=== PATIENT | male | born 1940 | race African-American/Black ===

== ENCOUNTER 2021-11-24 08:17 | Inpatient (IN) | payer OTHER ==
[2021-11-24] MEDS ORDERED: SODIUM CHLORIDE 0.9% 500 ML INFUS.BAG IV ONE ×2 (08:50→09:51)
[2021-11-24] MEDS ORDERED: ACETAMINOPHEN INJECTION 100 ML IVPB ONE (09:09)
[2021-11-24] MEDS ORDERED: ACETAMINOPHEN 1000 MG/100 ML BAG IVPB ONE ×2 (09:09→22:12)
[2021-11-24] MEDS ORDERED: SODIUM CHLORIDE 0.9% 1000 ML INFUS.BAG IV ONE (09:10)
[2021-11-24 09:23] LABS: VENOUS BASE EXCESS -7.6 mmol/L (-2-2); VENOUS O2 SATURATION 66.1 % (70-80); VENOUS PCO2 40.6 mmHg (38-52); VENOUS PH 7.28 (7.310-7.410)
[2021-11-24 09:35] LABS: BASO % 0.1 % (0-2.0); HEMATOCRIT 42.1 % (35.4-49); HEMOGLOBIN 13.8 GM/dL (11.7-16.9); LYMPH % 3.6 % (8-40); MCH 26.6 pg (25.7-33.7); MCHC 32.8 g/dl (32.0-35.9); MEAN CELL VOLUME 81.1 fl (80-96); MEAN PLT VOLUME 7.7 fl (7.5-11.1); MONO % 5.8 % (3.8-10.2); NEUT % 90.5 % (42.8-82.8); PLATELET COUNT 157 10^3/uL (134-434); WHITE BLOOD COUNT 10.8 K/mm3 (4.0-10.0)
[2021-11-24 09:40] LABS: ALBUMIN 2.9 g/dl (3.4-5.0); BLOOD UREA NITROGEN 30.6 mg/dL (7-18); CALCIUM 8.2 mg/dL (8.5-10.1)
[2021-11-24 09:44] LABS: CREATININE 2.5 mg/dL (0.55-1.3)
[2021-11-24 09:45] LABS: BILIRUBIN,TOTAL 0.6 mg/dL (0.2-1); TOT PROT 6.1 g/dl (6.4-8.2)
[2021-11-24 09:46] LABS: LACTIC ACID 4.3 mmol/L (0.4-2.0)
[2021-11-24] MEDS ORDERED: PIPERACILLIN/TAZOB 3.375 GM 3.375 GM in DEXTROSE 5%-WATER - 50 ML IVPB ONE (09:49)
[2021-11-24 09:50] LABS: INR 1.32 (0.83-1.09); PROTHROMBIN TIME (PATIENT) 15.2 SEC (9.7-13.0)
[2021-11-24] MEDS ORDERED: PIPERACILLIN/TAZOB 3.375 GM 3.375 GM/50 ML BAG IVPB ONE (10:05)
[2021-11-24 10:29] LABS: ANISOCYTOSIS 0; MACROCYTOSIS 0
[2021-11-24 11:33] LABS: EPI CELLS 13 /uL (0-25.1); HYALINE CASTS 91 /uL (0-3.1); PH,URINE 5.5 (5.0-8.0); URINE APPEARANCE CLOUDY; URINE BACTERIA >9,000 /uL (0-1359); URINE BILIRUBIN NEGATIVE (NEGATIVE); URINE COLOR DK YELLOW; URINE GLUCOSE (UA) NEGATIVE (NEGATIVE); URINE KETONE TRACE (NEGATIVE); URINE LEUK ESTERASE 2+ (NEGATIVE); URINE NITRITE POSITIVE (NEGATIVE); URINE PROTEIN 2+ (NEGATIVE); URINE RBC 357 /uL (0-23.9); URINE WBC 976 /uL (0-25.8)
[2021-11-24 12:04] LABS: CALCIUM 7.3 mg/dL (8.5-10.1)
[2021-11-24 12:05] LABS: ALBUMIN 2.4 g/dl (3.4-5.0); BLOOD UREA NITROGEN 29.9 mg/dL (7-18)
[2021-11-24 12:08] LABS: CREATININE 2.5 mg/dL (0.55-1.3)
[2021-11-24 12:10] LABS: BILIRUBIN,TOTAL 0.6 mg/dL (0.2-1); TOT PROT 5.4 g/dl (6.4-8.2)
[2021-11-24] MEDS ORDERED: LACTATED RINGERS SOLUTION 1000 ML INFUS.BAG IV ONE (13:53)
[2021-11-24] MEDS ORDERED: LACTATED RINGERS SOLUTION 1,000 ML/1,000 ML INFUS.BAG IV SCH (14:30)
[2021-11-24] MEDS ORDERED: cefTRIAXone SODIUM 1 GM VIAL ONE (15:25)
[2021-11-24] MEDS ORDERED: DEXTROSE 5%-WATER - 50 ML IVPB ONE (15:25)
[2021-11-24] MEDS ORDERED: PROPOFOL 20 ML ONE ×2 (15:26)
[2021-11-24] MEDS ORDERED: LIDOCAINE HCL/PF 2% SDV 5ML VIAL ONE (15:27)
[2021-11-24] MEDS ORDERED: ETOMIDATE 20 MG/10 ML AMPUL IVPUSH ONE (15:27)
[2021-11-24] MEDS: SODIUM CHLORIDE 1,000 ML IV SCH (15:30)
[2021-11-24] MEDS ORDERED: PHENYLEPHRINE HCL 10 MG/1 ML SINGLE DOSE VIAL ONE (15:30)
[2021-11-24] MEDS: CEFTRIAXONE 1 GM in DEXTROSE 5%-WATER - 50 ML IVPB SCH (15:30)
[2021-11-24] MEDS ORDERED: ePHEDrine SULFATE 50 MG/1 ML AMPULE ONE (15:34)
[2021-11-24] MEDS ORDERED: SODIUM CHLORIDE 0.9% P/F 10 ML VIAL IJ ONE (15:35)
[2021-11-24] MEDS ORDERED: SUCCINYLCHOLINE CHLORIDE 200 MG/10 ML SYRINGE ONE (15:38)
[2021-11-24] MEDS ORDERED: KETAMINE HCL 200 MG/20 ML VIAL ONE (16:00)
[2021-11-24] MEDS ORDERED: SEVOFLURANE 250 ML BTL ONE (16:17)
[2021-11-24] MEDS ORDERED: SODIUM CHLORIDE 500 ML IV STA (17:19)
[2021-11-24] MEDS: FINASTERIDE 5 MG TABLET (FP) PO SCH (18:00)
[2021-11-24] MEDS: PANTOPRAZOLE SODIUM 40 MG VIAL IVPUSH SCH (18:00)
[2021-11-24] MEDS: MUPIROCIN 2% TOPICAL OINTMENT FOR DECOLONIZATION NS SCH (21:55)
[2021-11-24] MEDS: TAMSULOSIN HCL 0.4 MG CAP PO SCH (21:55)
[2021-11-24] MEDS: CHLORHEXIDINE GLUCONATE 4% CLEANSER FOR DECOLONIZATION TP SCH (21:55)
[2021-11-25 07:09] LABS: HEMATOCRIT 41.8 % (35.4-49); HEMOGLOBIN 13.5 GM/dL (11.7-16.9); MCH 26.3 pg (25.7-33.7); MCHC 32.3 g/dl (32.0-35.9); MEAN CELL VOLUME 81.4 fl (80-96); PLATELET COUNT 125 10^3/uL (134-434); RBC 5.13 M/mm3 (4.00-5.60); RDW 15.4 % (11.9-15.9); WHITE BLOOD COUNT 13.3 K/mm3 (4.0-10.0)
[2021-11-25 07:27] LABS: ALBUMIN 2.3 g/dl (3.4-5.0); CALCIUM 7.3 mg/dL (8.5-10.1)
[2021-11-25 07:30] LABS: BLOOD UREA NITROGEN 33.2 mg/dL (7-18); CREATININE 2.5 mg/dL (0.55-1.3)
[2021-11-25 07:31] LABS: BILIRUBIN,TOTAL 0.6 mg/dL (0.2-1)
[2021-11-25 07:32] LABS: TOT PROT 5.5 g/dl (6.4-8.2)
[2021-11-25 08:05] LABS: ACTIVATED PTT 33.8 SECONDS (25.2-36.5); INR 1.3 (0.83-1.09)
[2021-11-25] MEDS ORDERED: DEXTROSE 5%-WATER - 50 ML IVPB ONE (09:26)
[2021-11-25] MEDS ORDERED: cefTRIAXone SODIUM 1 GM VIAL ONE (09:26)
[2021-11-25] MEDS: CEFTRIAXONE 1 GM in DEXTROSE 5%-WATER - 50 ML IVPB SCH (09:28)
[2021-11-25] MEDS: FINASTERIDE 5 MG TABLET (FP) PO SCH (09:29)
[2021-11-25] MEDS: MUPIROCIN 2% TOPICAL OINTMENT FOR DECOLONIZATION NS SCH ×2 (09:29→21:03)
[2021-11-25] MEDS: PANTOPRAZOLE SODIUM 40 MG VIAL IVPUSH SCH (09:29)
[2021-11-25] MEDS: TAMSULOSIN HCL 0.4 MG CAP PO SCH ×2 (09:29→21:03)
[2021-11-25 09:39] LABS: ANISOCYTOSIS 0; HELMET CELLS 0; HOWELL-JOLLY BODIES 0; MACROCYTOSIS 0; OVALOCYTE 0; ROULEAU 0; SICKELED CELLS 0; TARGET CELLS 0; TEAR DROP CELLS 0; TOXIC GRANULATION 0
[2021-11-25 09:40] LABS: PLATELET ESTIMATE SLT DECREASE
[2021-11-25] MEDS ORDERED: morphine SULFATE 4 MG/ML VIAL IVPUSH ONE ×2 (09:52→16:46)
[2021-11-25] MEDS ORDERED: HEPARIN NA (PORCINE) 5,000 UNITS/ML 1ML VIAL SQ SCH (10:00)
[2021-11-25] MEDS ORDERED: PIPERACILLIN/TAZOB 2.25 GM 2.25 GM in DEXTROSE 5%-WATER - 50 ML IVPB SCH ×2 (10:30→15:00)
[2021-11-25] MEDS ORDERED: MAGNESIUM 2GM/50ML STERILE WATER IVPB IVPB ONE ×2 (10:56→15:40)
[2021-11-25] MEDS ORDERED: MEROPENEM 1 GM VIAL (RESTRICTED TO ID) IVPB ONE ×2 (11:13→20:37)
[2021-11-25] MEDS ORDERED: DEXTROSE 5%-WATER 100 ML IVPB ONE ×2 (11:14→20:37)
[2021-11-25] MEDS: MEROPENEM 1 GM in DEXTROSE 5%-WATER 100 ML IVPB SCH ×2 (11:17→21:03)
[2021-11-25] MEDS ORDERED: ACETAMINOPHEN 1000 MG/100 ML BAG IVPB PRN (11:58)
[2021-11-25] MEDS ORDERED: morphine SULFATE 4 MG/ML VIAL IVPUSH PRN (11:58)
[2021-11-25 15:07] LABS: SARS-CoV-2 NAA Not Detected (Not Detected)
[2021-11-25] MEDS ORDERED: SODIUM CHLORIDE 500 ML IV STA (15:34)
[2021-11-25 15:44] LABS: LACTIC ACID 2.3 mmol/L (0.4-2.0)
[2021-11-25] MEDS: SODIUM CHLORIDE 1,000 ML IV SCH (16:15)
[2021-11-25] MEDS ORDERED: METOPROLOL TARTRATE 5 MG/5 ML VIAL IVPUSH ONE (16:34)
[2021-11-25] MEDS ORDERED: SODIUM CHLORIDE 1,000 ML IV STA (17:35)
[2021-11-25] MEDS ORDERED: METOCLOPRAMIDE HCL 10 MG TABLET (FP) PO ONE (18:17)
[2021-11-25 18:18] LABS: CHLORIDE 113 mmol/L (98-107); SODIUM 140 mmol/L (136-145)
[2021-11-25 18:19] LABS: CALCIUM 7.1 mg/dL (8.5-10.1)
[2021-11-25 18:20] LABS: ANION GAP 9 MMOL/L (8-16); BLOOD UREA NITROGEN 33.6 mg/dL (7-18); CO2 18 mmol/L (21-32); GLUCOSE,RANDOM 80 mg/dL (74-106); MAGNESIUM 5.2 mg/dL (1.8-2.4)
[2021-11-25 18:23] LABS: CREATININE 2.4 mg/dL (0.55-1.3); PHOSPHOROUS 3.5 mg/dL (2.5-4.9)
[2021-11-25] MEDS: METOPROLOL TARTRATE 25 MG TABLET (FP) PO SCH ×2 (18:58→21:03)
[2021-11-25] MEDS ORDERED: HEPARIN NA (PORCINE) 5,000 UNITS/ML 1ML VIAL IVPUSH PRN (19:17)
[2021-11-25] MEDS: HEPARIN NA (PORCINE) 5,000 UNITS/ML 1ML VIAL IVPUSH PRN (20:52)
[2021-11-25] MEDS: HEPARIN - 25,000 UNIT in SODIUM CHLORIDE 495 ML IV SCH (20:52)
[2021-11-25] MEDS: CHLORHEXIDINE GLUCONATE 4% CLEANSER FOR DECOLONIZATION TP SCH (21:04)
[2021-11-25] MEDS ORDERED: METOPROLOL TARTRATE 25 MG TABLET (FP) PO SCH (22:00)
[2021-11-25 22:35] LABS: CHLORIDE 113 mmol/L (98-107); SODIUM 140 mmol/L (136-145)
[2021-11-25 22:37] LABS: ANION GAP 9 MMOL/L (8-16); BLOOD UREA NITROGEN 34.6 mg/dL (7-18); CO2 18 mmol/L (21-32); GLUCOSE,RANDOM 121 mg/dL (74-106)
[2021-11-25 22:38] LABS: ALBUMIN 1.9 g/dl (3.4-5.0)
[2021-11-25 22:40] LABS: SGPT/ALT 29 U/L (13-61)
[2021-11-25 22:41] LABS: CREATININE 2.6 mg/dL (0.55-1.3); SGOT/AST 35 U/L (15-37)
[2021-11-25 22:42] LABS: BILIRUBIN,TOTAL 0.6 mg/dL (0.2-1); TOT PROT 4.9 g/dl (6.4-8.2)
[2021-11-25 22:43] LABS: ALK PHOS 109 U/L (45-117)
[2021-11-25 22:49] LABS: CALCIUM 6.9 mg/dL (8.5-10.1)
[2021-11-26 07:23] LABS: HEMATOCRIT 36.8 % (35.4-49); HEMOGLOBIN 12.3 GM/dL (11.7-16.9); MCHC 33.5 g/dl (32.0-35.9); MEAN CELL VOLUME 80.6 fl (80-96); MEAN PLT VOLUME 7.9 fl (7.5-11.1); PLATELET COUNT 108 10^3/uL (134-434); RBC 4.56 M/mm3 (4.00-5.60); RDW 15.6 % (11.9-15.9); WHITE BLOOD COUNT 15.7 K/mm3 (4.0-10.0)
[2021-11-26] MEDS ORDERED: DOCUSATE NA 100 MG/10 ML UNIT-DOSE CUPS PO PRN (07:37)
[2021-11-26] MEDS ORDERED: ACETAMINOPHEN 1000 MG/100 ML BAG IVPB PRN (07:38)
[2021-11-26 07:44] LABS: BLOOD UREA NITROGEN 37.1 mg/dL (7-18); CALCIUM 7.6 mg/dL (8.5-10.1); MAGNESIUM 2.1 mg/dL (1.8-2.4)
[2021-11-26 07:46] LABS: CREATININE 2.4 mg/dL (0.55-1.3)
[2021-11-26 07:47] LABS: BILIRUBIN,TOTAL 0.4 mg/dL (0.2-1); TOT PROT 4.9 g/dl (6.4-8.2)
[2021-11-26] MEDS ORDERED: MEROPENEM 1 GM VIAL (RESTRICTED TO ID) IVPB ONE ×2 (09:02→21:20)
[2021-11-26] MEDS ORDERED: DEXTROSE 5%-WATER 100 ML IVPB ONE ×2 (09:02→21:20)
[2021-11-26] MEDS: PANTOPRAZOLE SODIUM 40 MG VIAL IVPUSH SCH (09:03)
[2021-11-26] MEDS: MEROPENEM 1 GM in DEXTROSE 5%-WATER 100 ML IVPB SCH ×2 (09:03→21:47)
[2021-11-26] MEDS: TAMSULOSIN HCL 0.4 MG CAP PO SCH ×2 (09:04→21:47)
[2021-11-26] MEDS: METOPROLOL TARTRATE 25 MG TABLET (FP) PO SCH ×2 (09:04→21:47)
[2021-11-26] MEDS: FINASTERIDE 5 MG TABLET (FP) PO SCH (09:04)
[2021-11-26] MEDS: MUPIROCIN 2% TOPICAL OINTMENT FOR DECOLONIZATION NS SCH ×2 (09:05→21:46)
[2021-11-26 10:01] LABS: ANISOCYTOSIS 1+; MACROCYTOSIS 0
[2021-11-26 10:04] LABS: PLATELET ESTIMATE SLT DECREASE
[2021-11-26] MEDS ORDERED: FENTANYL NS IVPB 500 MCG/100 ML BAG IVPB SCH (10:30)
[2021-11-26] MEDS ORDERED: FUROSEMIDE 40 MG/4 ML INJECTABLE VIAL IVPUSH ONE (10:45)
[2021-11-26] MEDS ORDERED: SODIUM CHLORIDE 1,000 ML IV SCH (11:09)
[2021-11-26] MEDS: morphine SULFATE 4 MG/ML VIAL IVPUSH PRN (14:54)
[2021-11-26] MEDS: HEPARIN - 25,000 UNIT in SODIUM CHLORIDE 495 ML IV SCH (18:02)
[2021-11-26] MEDS: CHLORHEXIDINE GLUCONATE 4% CLEANSER FOR DECOLONIZATION TP SCH (21:47)
[2021-11-27] MEDS: ACETAMINOPHEN 325 MG TABLET (FP) PO PRN ×2 (06:22→22:12)
[2021-11-27 07:32] LABS: HEMATOCRIT 36.8 % (35.4-49); HEMOGLOBIN 12.6 GM/dL (11.7-16.9); MCH 26.9 pg (25.7-33.7); MCHC 34.2 g/dl (32.0-35.9); MEAN CELL VOLUME 78.8 fl (80-96); PLATELET COUNT 110 10^3/uL (134-434); RBC 4.67 M/mm3 (4.00-5.60); RDW 15.7 % (11.9-15.9); WHITE BLOOD COUNT 10.6 K/mm3 (4.0-10.0)
[2021-11-27] MEDS ORDERED: DEXTROSE 5%-WATER 100 ML IVPB ONE (07:53)
[2021-11-27] MEDS ORDERED: MEROPENEM 1 GM VIAL (RESTRICTED TO ID) IVPB ONE (07:53)
[2021-11-27] MEDS: HEPARIN NA (PORCINE) 5,000 UNITS/ML 1ML VIAL IVPUSH PRN (07:58)
[2021-11-27] MEDS: TAMSULOSIN HCL 0.4 MG CAP PO SCH ×2 (08:02→22:12)
[2021-11-27 08:04] LABS: ALBUMIN 1.8 g/dl (3.4-5.0)
[2021-11-27 08:05] LABS: BLOOD UREA NITROGEN 36.8 mg/dL (7-18); CALCIUM 7.8 mg/dL (8.5-10.1)
[2021-11-27 08:06] LABS: MAGNESIUM 1.9 mg/dL (1.8-2.4)
[2021-11-27 08:07] LABS: CREATININE 2.2 mg/dL (0.55-1.3)
[2021-11-27 08:09] LABS: BILIRUBIN,TOTAL 0.8 mg/dL (0.2-1); TOT PROT 4.7 g/dl (6.4-8.2)
[2021-11-27 09:52] LABS: ANISOCYTOSIS 0; HELMET CELLS 0; HOWELL-JOLLY BODIES 0; MACROCYTOSIS 0; OVALOCYTE 0; ROULEAU 0; SICKELED CELLS 0; TARGET CELLS 0; TEAR DROP CELLS 0; TOXIC GRANULATION 0
[2021-11-27] MEDS: METOPROLOL TARTRATE 25 MG TABLET (FP) PO SCH ×3 (10:11→22:12)
[2021-11-27] MEDS: MEROPENEM 1 GM in DEXTROSE 5%-WATER 100 ML IVPB SCH (10:11)
[2021-11-27] MEDS: PANTOPRAZOLE SODIUM 40 MG VIAL IVPUSH SCH (10:12)
[2021-11-27] MEDS: FINASTERIDE 5 MG TABLET (FP) PO SCH (10:12)
[2021-11-27] MEDS: MUPIROCIN 2% TOPICAL OINTMENT FOR DECOLONIZATION NS SCH ×2 (10:14→22:13)
[2021-11-27] MEDS: APIXABAN 2.5 MG TABLET PO SCH ×2 (11:38→22:12)
[2021-11-27] MEDS: CEFAZOLIN 2 GM in SODIUM CHLORIDE 100 ML IVPB SCH (17:54)
[2021-11-27] MEDS: morphine SULFATE 4 MG/ML VIAL IVPUSH PRN (19:51)
[2021-11-27] MEDS: CHLORHEXIDINE GLUCONATE 4% CLEANSER FOR DECOLONIZATION TP SCH (22:13)
[2021-11-28] MEDS: CEFAZOLIN 2 GM in SODIUM CHLORIDE 100 ML IVPB SCH ×3 (01:33→17:51)
[2021-11-28] MEDS: METOPROLOL TARTRATE 25 MG TABLET (FP) PO SCH ×3 (06:30→21:06)
[2021-11-28 07:34] LABS: HEMATOCRIT 38.3 % (35.4-49); HEMOGLOBIN 12.6 GM/dL (11.7-16.9); MCH 26.1 pg (25.7-33.7); MCHC 32.8 g/dl (32.0-35.9); MEAN CELL VOLUME 79.7 fl (80-96); MEAN PLT VOLUME 7.8 fl (7.5-11.1); PLATELET COUNT 123 10^3/uL (134-434); RBC 4.81 M/mm3 (4.00-5.60); RDW 15.8 % (11.9-15.9)
[2021-11-28 07:37] LABS: ALBUMIN 1.8 g/dl (3.4-5.0); BLOOD UREA NITROGEN 36.8 mg/dL (7-18)
[2021-11-28 07:40] LABS: CREATININE 1.9 mg/dL (0.55-1.3)
[2021-11-28 07:41] LABS: TOT PROT 4.9 g/dl (6.4-8.2)
[2021-11-28 07:42] LABS: BILIRUBIN,TOTAL 0.7 mg/dL (0.2-1)
[2021-11-28] MEDS: TAMSULOSIN HCL 0.4 MG CAP PO SCH ×2 (09:25→21:05)
[2021-11-28] MEDS: ACETAMINOPHEN 325 MG TABLET (FP) PO PRN ×2 (09:32→17:20)
[2021-11-28] MEDS: FINASTERIDE 5 MG TABLET (FP) PO SCH (09:32)
[2021-11-28] MEDS: APIXABAN 2.5 MG TABLET PO SCH (09:32)
[2021-11-28] MEDS: PANTOPRAZOLE SODIUM 40 MG VIAL IVPUSH SCH (09:33)
[2021-11-28] MEDS: MUPIROCIN 2% TOPICAL OINTMENT FOR DECOLONIZATION NS SCH ×2 (09:34→21:06)
[2021-11-28] MEDS ORDERED: ALBUTEROL SO4 2.5/IPRATROPIUM 0.5 INH SOL 3 ML VIAL.NEB. NEB PRN (09:59)
[2021-11-28 10:55] LABS: ANISOCYTOSIS 2+; MACROCYTOSIS 1+
[2021-11-28 13:16] LABS: CALCIUM 7.9 mg/dL (8.5-10.1)
[2021-11-28 13:17] LABS: BLOOD UREA NITROGEN 34.6 mg/dL (7-18)
[2021-11-28 13:20] LABS: CREATININE 1.7 mg/dL (0.55-1.3)
[2021-11-28] MEDS: HEPARIN SOD,PORK IN 0.45% NACL 25,000 UNITS/500 ML INFUS.BAG IVPB SCH (14:10)
[2021-11-28] MEDS: CHLORHEXIDINE GLUCONATE 4% CLEANSER FOR DECOLONIZATION TP SCH (21:06)
[2021-11-29] MEDS: HEPARIN NA (PORCINE) 5,000 UNITS/ML 1ML VIAL IVPUSH PRN ×3 (01:00→22:06)
[2021-11-29] MEDS: CEFAZOLIN 2 GM in SODIUM CHLORIDE 100 ML IVPB SCH ×2 (01:57→11:05)
[2021-11-29] MEDS: METOPROLOL TARTRATE 25 MG TABLET (FP) PO SCH ×3 (06:09→21:41)
[2021-11-29 07:35] LABS: BLOOD UREA NITROGEN 29.7 mg/dL (7-18)
[2021-11-29 07:38] LABS: CREATININE 1.6 mg/dL (0.55-1.3)
[2021-11-29 08:00] LABS: HEMATOCRIT 40.2 % (35.4-49); HEMOGLOBIN 13.2 GM/dL (11.7-16.9); MCH 26.3 pg (25.7-33.7); MCHC 32.9 g/dl (32.0-35.9); PLATELET COUNT 169 10^3/uL (134-434); RBC 5.03 M/mm3 (4.00-5.60); RDW 15.7 % (11.9-15.9); WHITE BLOOD COUNT 14.3 K/mm3 (4.0-10.0)
[2021-11-29 09:12] LABS: ANISOCYTOSIS 1+; MACROCYTOSIS 0
[2021-11-29] MEDS: TAMSULOSIN HCL 0.4 MG CAP PO SCH ×2 (11:05→21:41)
[2021-11-29] MEDS: FINASTERIDE 5 MG TABLET (FP) PO SCH (11:05)
[2021-11-29] MEDS: MUPIROCIN 2% TOPICAL OINTMENT FOR DECOLONIZATION NS SCH (11:05)
[2021-11-29] MEDS: PANTOPRAZOLE SODIUM 40 MG VIAL IVPUSH SCH (11:05)
[2021-11-29] MEDS: ACETAMINOPHEN 325 MG TABLET (FP) PO PRN (11:25)
[2021-11-29 11:29] LABS: INR 1.28 (0.83-1.09); PROTHROMBIN TIME (PATIENT) 14.8 SEC (9.7-13.0)
[2021-11-29 11:32] LABS: ACTIVATED PTT 34.2 SECONDS (25.2-36.5)
[2021-11-29 14:24] VITALS: BMI 29.7
[2021-11-29] MEDS: HEPARIN SOD,PORK IN 0.45% NACL 25,000 UNITS/500 ML INFUS.BAG IVPB SCH (14:28)
[2021-11-29] MEDS ORDERED: PIPERACILLIN/TAZOBACTAM 3.375 GM VIAL IVPB ONE ×2 (17:47→23:57)
[2021-11-29] MEDS ORDERED: DEXTROSE 5%-WATER - 50 ML IVPB ONE ×2 (17:47→23:57)
[2021-11-29] MEDS: PIPERACILLIN/TAZOB 3.375 GM 3.375 GM in DEXTROSE 5%-WATER - 50 ML IVPB SCH (17:49)
[2021-11-29 21:24] LABS: ACTIVATED PTT 34.7 SECONDS (25.2-36.5); INR 1.18 (0.83-1.09); PROTHROMBIN TIME (PATIENT) 13.6 SEC (9.7-13.0)
[2021-11-29] MEDS: CHLORHEXIDINE GLUCONATE 4% CLEANSER FOR DECOLONIZATION TP SCH (21:41)
[2021-11-30] MEDS: PIPERACILLIN/TAZOB 3.375 GM 3.375 GM in DEXTROSE 5%-WATER - 50 ML IVPB SCH ×3 (02:20→18:17)
[2021-11-30] MEDS ORDERED: DOCUSATE NA 100 MG/10 ML UNIT-DOSE CUPS PO PRN (03:00)
[2021-11-30] MEDS: ACETAMINOPHEN 325 MG TABLET (FP) PO PRN ×3 (03:05→21:06)
[2021-11-30] MEDS: METOPROLOL TARTRATE 25 MG TABLET (FP) PO SCH ×3 (05:31→21:06)
[2021-11-30] MEDS: HEPARIN NA (PORCINE) 5,000 UNITS/ML 1ML VIAL IVPUSH PRN ×3 (05:32→23:26)
[2021-11-30 06:58] LABS: HEMATOCRIT 35.5 % (35.4-49); HEMOGLOBIN 11.9 GM/dL (11.7-16.9); MCH 26.4 pg (25.7-33.7); MCHC 33.6 g/dl (32.0-35.9); MEAN CELL VOLUME 78.5 fl (80-96); MEAN PLT VOLUME 7.5 fl (7.5-11.1); PLATELET COUNT 207 10^3/uL (134-434); RBC 4.52 M/mm3 (4.00-5.60); RDW 15.1 % (11.9-15.9)
[2021-11-30 07:24] LABS: ALBUMIN 1.7 g/dl (3.4-5.0); BLOOD UREA NITROGEN 26.8 mg/dL (7-18); CALCIUM 8.3 mg/dL (8.5-10.1)
[2021-11-30 07:27] LABS: CREATININE 1.4 mg/dL (0.55-1.3)
[2021-11-30 07:29] LABS: BILIRUBIN,TOTAL 0.9 mg/dL (0.2-1); TOT PROT 4.8 g/dl (6.4-8.2)
[2021-11-30] MEDS ORDERED: PIPERACILLIN/TAZOBACTAM 3.375 GM VIAL IVPB ONE ×3 (09:13→23:13)
[2021-11-30] MEDS ORDERED: DEXTROSE 5%-WATER - 50 ML IVPB ONE ×3 (09:14→23:13)
[2021-11-30] MEDS: FINASTERIDE 5 MG TABLET (FP) PO SCH (09:23)
[2021-11-30] MEDS: TAMSULOSIN HCL 0.4 MG CAP PO SCH ×2 (09:23→21:06)
[2021-11-30] MEDS: PANTOPRAZOLE SODIUM 40 MG VIAL IVPUSH SCH (09:23)
[2021-11-30] MEDS: HEPARIN SOD,PORK IN 0.45% NACL 25,000 UNITS/500 ML INFUS.BAG IVPB SCH ×2 (09:24→13:47)
[2021-11-30 10:07] LABS: ANISOCYTOSIS 0; HELMET CELLS 0; HOWELL-JOLLY BODIES 0; MACROCYTOSIS 0; OVALOCYTE 0; ROULEAU 0; SICKELED CELLS 0; TARGET CELLS 0; TEAR DROP CELLS 0; TOXIC GRANULATION 0
[2021-11-30] MEDS: CHLORHEXIDINE GLUCONATE 4% CLEANSER FOR DECOLONIZATION TP SCH (21:06)
[2021-12-01] MEDS: PIPERACILLIN/TAZOB 3.375 GM 3.375 GM in DEXTROSE 5%-WATER - 50 ML IVPB SCH ×3 (01:48→17:30)
[2021-12-01] MEDS: METOPROLOL TARTRATE 25 MG TABLET (FP) PO SCH ×3 (04:59→21:55)
[2021-12-01 07:20] LABS: HEMATOCRIT 35.5 % (35.4-49); HEMOGLOBIN 12.1 GM/dL (11.7-16.9); MCH 26.9 pg (25.7-33.7); MCHC 34.2 g/dl (32.0-35.9); MEAN CELL VOLUME 78.7 fl (80-96); MEAN PLT VOLUME 7.3 fl (7.5-11.1); PLATELET COUNT 301 10^3/uL (134-434); WHITE BLOOD COUNT 11.5 K/mm3 (4.0-10.0)
[2021-12-01 07:35] LABS: CALCIUM 7.8 mg/dL (8.5-10.1)
[2021-12-01 07:36] LABS: ALBUMIN 1.7 g/dl (3.4-5.0); BLOOD UREA NITROGEN 26.6 mg/dL (7-18); MAGNESIUM 1.6 mg/dL (1.8-2.4)
[2021-12-01 07:39] LABS: CREATININE 1.4 mg/dL (0.55-1.3); PHOSPHOROUS 2.5 mg/dL (2.5-4.9)
[2021-12-01 07:41] LABS: BILIRUBIN,TOTAL 1.3 mg/dL (0.2-1)
[2021-12-01] MEDS: TAMSULOSIN HCL 0.4 MG CAP PO SCH ×2 (07:49→21:55)
[2021-12-01] MEDS: HEPARIN NA (PORCINE) 5,000 UNITS/ML 1ML VIAL IVPUSH PRN ×2 (07:49→16:38)
[2021-12-01] MEDS ORDERED: PIPERACILLIN/TAZOBACTAM 3.375 GM VIAL IVPB ONE ×2 (08:22→14:44)
[2021-12-01] MEDS ORDERED: DEXTROSE 5%-WATER - 50 ML IVPB ONE ×2 (08:22→14:44)
[2021-12-01] MEDS: ACETAMINOPHEN 325 MG TABLET (FP) PO PRN ×2 (09:29→21:55)
[2021-12-01] MEDS: PANTOPRAZOLE SODIUM 40 MG VIAL IVPUSH SCH (09:30)
[2021-12-01] MEDS: FINASTERIDE 5 MG TABLET (FP) PO SCH (09:30)
[2021-12-01 10:05] LABS: ANISOCYTOSIS 0; HELMET CELLS 0; HOWELL-JOLLY BODIES 0; MACROCYTOSIS 0; OVALOCYTE 0; ROULEAU 0; SICKELED CELLS 0; TARGET CELLS 0; TEAR DROP CELLS 0; TOXIC GRANULATION 0
[2021-12-01] MEDS: HEPARIN SOD,PORK IN 0.45% NACL 25,000 UNITS/500 ML INFUS.BAG IVPB SCH (15:38)
[2021-12-01] MEDS: CHLORHEXIDINE GLUCONATE 4% CLEANSER FOR DECOLONIZATION TP SCH (21:55)
[2021-12-01] MEDS ORDERED: ARTIFICIAL TEARS (POLYVINYL ALCOHOL) OPTH DROPS OU PRN (23:55)
[2021-12-02] MEDS ORDERED: DEXTROSE 5%-WATER - 50 ML IVPB ONE ×3 (00:07→17:25)
[2021-12-02] MEDS ORDERED: PIPERACILLIN/TAZOBACTAM 3.375 GM VIAL IVPB ONE ×3 (00:07→17:25)
[2021-12-02] MEDS: PIPERACILLIN/TAZOB 3.375 GM 3.375 GM in DEXTROSE 5%-WATER - 50 ML IVPB SCH ×3 (02:16→17:44)
[2021-12-02] MEDS: METOPROLOL TARTRATE 25 MG TABLET (FP) PO SCH ×3 (06:38→21:35)
[2021-12-02] MEDS: ACETAMINOPHEN 325 MG TABLET (FP) PO PRN ×2 (06:38→14:00)
[2021-12-02 07:09] LABS: HEMATOCRIT 35.9 % (35.4-49); HEMOGLOBIN 11.8 GM/dL (11.7-16.9); MCH 26.1 pg (25.7-33.7); MCHC 32.8 g/dl (32.0-35.9); MEAN CELL VOLUME 79.7 fl (80-96); MEAN PLT VOLUME 7.1 fl (7.5-11.1); PLATELET COUNT 446 10^3/uL (134-434); RBC 4.51 M/mm3 (4.00-5.60); RDW 14.9 % (11.9-15.9); WHITE BLOOD COUNT 9.8 K/mm3 (4.0-10.0)
[2021-12-02 07:26] LABS: CALCIUM 8.2 mg/dL (8.5-10.1)
[2021-12-02 07:27] LABS: ALBUMIN 1.7 g/dl (3.4-5.0); BLOOD UREA NITROGEN 22.6 mg/dL (7-18); MAGNESIUM 1.8 mg/dL (1.8-2.4)
[2021-12-02 07:30] LABS: CREATININE 1.3 mg/dL (0.55-1.3); PHOSPHOROUS 2.4 mg/dL (2.5-4.9)
[2021-12-02 07:31] LABS: BILIRUBIN,TOTAL 1.2 mg/dL (0.2-1)
[2021-12-02 07:32] LABS: TOT PROT 5.1 g/dl (6.4-8.2)
[2021-12-02] MEDS: HEPARIN SOD,PORK IN 0.45% NACL 25,000 UNITS/500 ML INFUS.BAG IVPB SCH (08:05)
[2021-12-02] MEDS: HEPARIN NA (PORCINE) 5,000 UNITS/ML 1ML VIAL IVPUSH PRN ×2 (08:05→17:00)
[2021-12-02] MEDS: FINASTERIDE 5 MG TABLET (FP) PO SCH (09:29)
[2021-12-02] MEDS: TAMSULOSIN HCL 0.4 MG CAP PO SCH ×2 (09:29→21:35)
[2021-12-02] MEDS: PANTOPRAZOLE SODIUM 40 MG VIAL IVPUSH SCH (09:30)
[2021-12-02] MEDS ORDERED: NAPH,MB-DB/K PH,MBDB POWDER PACKET PO ONE (13:30)
[2021-12-02] MEDS: CHLORHEXIDINE GLUCONATE 4% CLEANSER FOR DECOLONIZATION TP SCH (21:35)
[2021-12-03] MEDS ORDERED: DEXTROSE 5%-WATER - 50 ML IVPB ONE ×3 (00:47→17:07)
[2021-12-03] MEDS ORDERED: PIPERACILLIN/TAZOBACTAM 3.375 GM VIAL IVPB ONE ×3 (00:47→17:07)
[2021-12-03] MEDS: PIPERACILLIN/TAZOB 3.375 GM 3.375 GM in DEXTROSE 5%-WATER - 50 ML IVPB SCH ×3 (02:56→17:24)
[2021-12-03] MEDS ORDERED: VANCOMYCIN/WATER 1,250 MG/250 ML BAG IVPB SCH ×3 (04:15→05:15)
[2021-12-03] MEDS: METOPROLOL TARTRATE 25 MG TABLET (FP) PO SCH (05:29)
[2021-12-03 07:30] LABS: HEMOGLOBIN 11.6 GM/dL (11.7-16.9); MCH 26.5 pg (25.7-33.7); MCHC 33.2 g/dl (32.0-35.9); MEAN CELL VOLUME 79.8 fl (80-96); MEAN PLT VOLUME 7.2 fl (7.5-11.1); PLATELET COUNT 536 10^3/uL (134-434); RBC 4.38 M/mm3 (4.00-5.60); RDW 14.5 % (11.9-15.9); WHITE BLOOD COUNT 9.2 K/mm3 (4.0-10.0)
[2021-12-03 08:07] LABS: ALBUMIN 1.7 g/dl (3.4-5.0); CALCIUM 7.9 mg/dL (8.5-10.1)
[2021-12-03 08:08] LABS: BLOOD UREA NITROGEN 20.6 mg/dL (7-18)
[2021-12-03 08:10] LABS: CREATININE 1.4 mg/dL (0.55-1.3)
[2021-12-03 08:12] LABS: BILIRUBIN,TOTAL 0.7 mg/dL (0.2-1)
[2021-12-03 08:13] LABS: TOT PROT 5.3 g/dl (6.4-8.2)
[2021-12-03] MEDS: FINASTERIDE 5 MG TABLET (FP) PO SCH (09:20)
[2021-12-03] MEDS: PANTOPRAZOLE SODIUM 40 MG VIAL IVPUSH SCH (09:20)
[2021-12-03] MEDS: METOPROLOL TARTRATE 50 MG TABLET (FP) PO SCH ×2 (09:20→21:22)
[2021-12-03] MEDS: TAMSULOSIN HCL 0.4 MG CAP PO SCH ×2 (09:20→21:22)
[2021-12-03] MEDS: HEPARIN SOD,PORK IN 0.45% NACL 25,000 UNITS/500 ML INFUS.BAG IVPB SCH (17:24)
[2021-12-03] MEDS: ACETAMINOPHEN 325 MG TABLET (FP) PO PRN (21:22)
[2021-12-03] MEDS: CHLORHEXIDINE GLUCONATE 4% CLEANSER FOR DECOLONIZATION TP SCH (21:23)
[2021-12-04] MEDS ORDERED: PIPERACILLIN/TAZOBACTAM 3.375 GM VIAL IVPB ONE ×3 (02:22→17:09)
[2021-12-04] MEDS ORDERED: DEXTROSE 5%-WATER - 50 ML IVPB ONE ×3 (02:22→17:10)
[2021-12-04] MEDS: PIPERACILLIN/TAZOB 3.375 GM 3.375 GM in DEXTROSE 5%-WATER - 50 ML IVPB SCH ×3 (02:31→17:32)
[2021-12-04 07:23] LABS: HEMATOCRIT 32.9 % (35.4-49); HEMOGLOBIN 11.3 GM/dL (11.7-16.9); MCH 27.4 pg (25.7-33.7); MCHC 34.2 g/dl (32.0-35.9); MEAN CELL VOLUME 79.9 fl (80-96); MEAN PLT VOLUME 7.1 fl (7.5-11.1); PLATELET COUNT 533 10^3/uL (134-434); RBC 4.11 M/mm3 (4.00-5.60); RDW 14.4 % (11.9-15.9); WHITE BLOOD COUNT 3.6 K/mm3 (4.0-10.0)
[2021-12-04 07:33] LABS: CALCIUM 8.4 mg/dL (8.5-10.1)
[2021-12-04 07:34] LABS: ALBUMIN 1.8 g/dl (3.4-5.0); BLOOD UREA NITROGEN 22.8 mg/dL (7-18)
[2021-12-04 07:37] LABS: CREATININE 1.5 mg/dL (0.55-1.3)
[2021-12-04 07:39] LABS: BILIRUBIN,TOTAL 0.4 mg/dL (0.2-1); TOT PROT 5.3 g/dl (6.4-8.2)
[2021-12-04] MEDS: FINASTERIDE 5 MG TABLET (FP) PO SCH (09:29)
[2021-12-04] MEDS: TAMSULOSIN HCL 0.4 MG CAP PO SCH ×2 (09:29→21:11)
[2021-12-04] MEDS: METOPROLOL TARTRATE 50 MG TABLET (FP) PO SCH ×2 (09:29→21:11)
[2021-12-04] MEDS: PANTOPRAZOLE SODIUM 40 MG VIAL IVPUSH SCH (09:29)
[2021-12-04 09:35] LABS: ANISOCYTOSIS 0; HELMET CELLS 0; HOWELL-JOLLY BODIES 0; MACROCYTOSIS 0; OVALOCYTE 0; ROULEAU 0; SICKELED CELLS 0; TARGET CELLS 0; TEAR DROP CELLS 0; TOXIC GRANULATION 0
[2021-12-04 16:42] LABS: EPI CELLS 24 /uL (0-25.1); HYALINE CASTS 10 /uL (0-3.1); PH,URINE 6.5 (5.0-8.0); URINE APPEARANCE TURBID; URINE BACTERIA 299 /uL (0-1359); URINE BILIRUBIN NEGATIVE (NEGATIVE); URINE COLOR YELLOW; URINE GLUCOSE (UA) NEGATIVE (NEGATIVE); URINE KETONE NEGATIVE (NEGATIVE); URINE LEUK ESTERASE 3+ (NEGATIVE); URINE NITRITE NEGATIVE (NEGATIVE); URINE PROTEIN 2+ (NEGATIVE); URINE RBC 120 /uL (0-23.9); URINE UROBILINOGEN 0.2 mg/dL (0.2-1.0); URINE WBC 7828 /uL (0-25.8)
[2021-12-04] MEDS: HEPARIN SOD,PORK IN 0.45% NACL 25,000 UNITS/500 ML INFUS.BAG IVPB SCH (17:32)
[2021-12-04] MEDS: CHLORHEXIDINE GLUCONATE 4% CLEANSER FOR DECOLONIZATION TP SCH (21:11)
[2021-12-05] MEDS ORDERED: DEXTROSE 5%-WATER - 50 ML IVPB ONE ×4 (00:28→21:00)
[2021-12-05] MEDS ORDERED: PIPERACILLIN/TAZOBACTAM 3.375 GM VIAL IVPB ONE ×4 (00:28→21:00)
[2021-12-05] MEDS: PIPERACILLIN/TAZOB 3.375 GM 3.375 GM in DEXTROSE 5%-WATER - 50 ML IVPB SCH ×3 (01:02→17:18)
[2021-12-05 06:42] LABS: EOS % 1.1 % (0-4.5); HEMATOCRIT 35.7 % (35.4-49); HEMOGLOBIN 11.7 GM/dL (11.7-16.9); LYMPH % 16.1 % (8-40); MCH 26.2 pg (25.7-33.7); MCHC 32.7 g/dl (32.0-35.9); MEAN CELL VOLUME 80.2 fl (80-96); MEAN PLT VOLUME 6.6 fl (7.5-11.1); NEUT % 72.8 % (42.8-82.8); PLATELET COUNT 728 10^3/uL (134-434); RBC 4.46 M/mm3 (4.00-5.60); RDW 14.8 % (11.9-15.9); WHITE BLOOD COUNT 7.9 K/mm3 (4.0-10.0)
[2021-12-05] MEDS: PANTOPRAZOLE SODIUM 40 MG VIAL IVPUSH SCH (09:37)
[2021-12-05] MEDS: FINASTERIDE 5 MG TABLET (FP) PO SCH (09:38)
[2021-12-05] MEDS: ACETAMINOPHEN 325 MG TABLET (FP) PO PRN ×2 (09:39→21:03)
[2021-12-05] MEDS: TAMSULOSIN HCL 0.4 MG CAP PO SCH ×2 (09:46→21:03)
[2021-12-05] MEDS: METOPROLOL TARTRATE 50 MG TABLET (FP) PO SCH ×2 (10:04→21:03)
[2021-12-05 10:17] LABS: ALBUMIN 1.9 g/dl (3.4-5.0); BLOOD UREA NITROGEN 19.5 mg/dL (7-18); CALCIUM 8.4 mg/dL (8.5-10.1)
[2021-12-05 10:20] LABS: CREATININE 1.3 mg/dL (0.55-1.3)
[2021-12-05 10:22] LABS: BILIRUBIN,TOTAL 0.4 mg/dL (0.2-1); TOT PROT 5.7 g/dl (6.4-8.2)
[2021-12-05] MEDS: HEPARIN SOD,PORK IN 0.45% NACL 25,000 UNITS/500 ML INFUS.BAG IVPB SCH (18:05)
[2021-12-05] MEDS: CHLORHEXIDINE GLUCONATE 4% CLEANSER FOR DECOLONIZATION TP SCH (21:04)
[2021-12-06] MEDS ORDERED: DEXTROSE 5%-WATER - 50 ML IVPB ONE ×4 (02:42→22:10)
[2021-12-06] MEDS ORDERED: PIPERACILLIN/TAZOBACTAM 3.375 GM VIAL IVPB ONE ×4 (02:42→22:10)
[2021-12-06] MEDS: PIPERACILLIN/TAZOB 3.375 GM 3.375 GM in DEXTROSE 5%-WATER - 50 ML IVPB SCH ×3 (02:43→17:05)
[2021-12-06 07:12] LABS: BASO % 1.3 % (0-2.0); EOS % 1.1 % (0-4.5); HEMOGLOBIN 11.7 GM/dL (11.7-16.9); LYMPH % 16.4 % (8-40); MCH 26.6 pg (25.7-33.7); MCHC 33.4 g/dl (32.0-35.9); MEAN CELL VOLUME 79.4 fl (80-96); MEAN PLT VOLUME 6.6 fl (7.5-11.1); MONO % 9.1 % (3.8-10.2); NEUT % 72.1 % (42.8-82.8); PLATELET COUNT 770 10^3/uL (134-434); RDW 14.4 % (11.9-15.9)
[2021-12-06 07:35] LABS: CALCIUM 8.9 mg/dL (8.5-10.1)
[2021-12-06 07:36] LABS: BLOOD UREA NITROGEN 17.2 mg/dL (7-18)
[2021-12-06 07:39] LABS: CREATININE 1.3 mg/dL (0.55-1.3)
[2021-12-06 07:40] LABS: BILIRUBIN,TOTAL 0.5 mg/dL (0.2-1); TOT PROT 5.8 g/dl (6.4-8.2)
[2021-12-06] MEDS: TAMSULOSIN HCL 0.4 MG CAP PO SCH ×2 (09:15→22:11)
[2021-12-06] MEDS: FINASTERIDE 5 MG TABLET (FP) PO SCH (09:58)
[2021-12-06] MEDS: METOPROLOL TARTRATE 50 MG TABLET (FP) PO SCH ×2 (09:59→22:11)
[2021-12-06] MEDS: PANTOPRAZOLE SODIUM 40 MG VIAL IVPUSH SCH (09:59)
[2021-12-06] MEDS ORDERED: MIDAZOLAM HCL 2 MG/2 ML SINGLE DOSE VIAL ONE (10:29)
[2021-12-06] MEDS ORDERED: PROPOFOL 20 ML ONE (10:31)
[2021-12-06] MEDS ORDERED: LIDOCAINE HCL 2% JELLY 10 ML CARTRIDGE ONE (10:32)
[2021-12-06] MEDS ORDERED: ceFAZolin SODIUM 1 GM VIAL IVPB ONE ×2 (10:56→11:15)
[2021-12-06] MEDS ORDERED: ONDANSETRON 4 MG/2 ML VIAL IVPUSH PRN ×2 (11:07→14:01)
[2021-12-06] MEDS ORDERED: oxyCODONE HCL 5 MG TABLET PO PRN ×2 (11:07→14:01)
[2021-12-06] MEDS ORDERED: ceFAZolin SODIUM 1 GM VIAL ONE (11:15)
[2021-12-06] MEDS ORDERED: DEXAMETHASONE SOD PHOSPHATE 4 MG/1 ML VIAL ONE (11:15)
[2021-12-06] MEDS ORDERED: DOCUSATE NA 100 MG/10 ML UNIT-DOSE CUPS PO PRN (14:01)
[2021-12-06] MEDS ORDERED: ALBUTEROL SO4 2.5/IPRATROPIUM 0.5 INH SOL 3 ML VIAL.NEB. NEB PRN (14:01)
[2021-12-06] MEDS ORDERED: ARTIFICIAL TEARS (POLYVINYL ALCOHOL) OPTH DROPS OU PRN (14:01)
[2021-12-06] MEDS: ACETAMINOPHEN 325 MG TABLET (FP) PO PRN (22:11)
[2021-12-06] MEDS: CHLORHEXIDINE GLUCONATE 4% CLEANSER FOR DECOLONIZATION TP SCH (22:12)
[2021-12-07] MEDS: PIPERACILLIN/TAZOB 3.375 GM 3.375 GM in DEXTROSE 5%-WATER - 50 ML IVPB SCH ×3 (01:25→17:36)
[2021-12-07 07:30] LABS: CALCIUM 8.5 mg/dL (8.5-10.1)
[2021-12-07 07:31] LABS: BLOOD UREA NITROGEN 20.7 mg/dL (7-18)
[2021-12-07 07:34] LABS: CREATININE 1.5 mg/dL (0.55-1.3)
[2021-12-07 07:35] LABS: BILIRUBIN,TOTAL 0.4 mg/dL (0.2-1)
[2021-12-07 07:36] LABS: BASO % 0.5 % (0-2.0); EOS % 0.3 % (0-4.5); HEMATOCRIT 35.3 % (35.4-49); HEMOGLOBIN 11.9 GM/dL (11.7-16.9); LYMPH % 16.5 % (8-40); MCHC 33.8 g/dl (32.0-35.9); MEAN PLT VOLUME 6.6 fl (7.5-11.1); MONO % 7.7 % (3.8-10.2); PLATELET COUNT 784 10^3/uL (134-434); RBC 4.41 M/mm3 (4.00-5.60); RDW 14.7 % (11.9-15.9); TOT PROT 5.7 g/dl (6.4-8.2); WHITE BLOOD COUNT 8.3 K/mm3 (4.0-10.0)
[2021-12-07] MEDS ORDERED: PIPERACILLIN/TAZOBACTAM 3.375 GM VIAL IVPB ONE ×2 (09:27→17:20)
[2021-12-07] MEDS ORDERED: DEXTROSE 5%-WATER - 50 ML IVPB ONE ×2 (09:27→17:21)
[2021-12-07] MEDS: TAMSULOSIN HCL 0.4 MG CAP PO SCH ×2 (09:41→21:27)
[2021-12-07] MEDS: PANTOPRAZOLE SODIUM 40 MG VIAL IVPUSH SCH (09:41)
[2021-12-07] MEDS: METOPROLOL TARTRATE 50 MG TABLET (FP) PO SCH ×2 (09:42→21:27)
[2021-12-07] MEDS: FINASTERIDE 5 MG TABLET (FP) PO SCH (09:42)
[2021-12-07] MEDS: ACETAMINOPHEN 325 MG TABLET (FP) PO PRN (09:43)
[2021-12-07] MEDS: CHLORHEXIDINE GLUCONATE 4% CLEANSER FOR DECOLONIZATION TP SCH (21:27)
[2021-12-08] MEDS ORDERED: DEXTROSE 5%-WATER - 50 ML IVPB ONE ×3 (00:18→16:41)
[2021-12-08] MEDS ORDERED: PIPERACILLIN/TAZOBACTAM 3.375 GM VIAL IVPB ONE ×3 (00:18→16:41)
[2021-12-08] MEDS: PIPERACILLIN/TAZOB 3.375 GM 3.375 GM in DEXTROSE 5%-WATER - 50 ML IVPB SCH ×3 (01:10→17:00)
[2021-12-08 07:29] LABS: BASO % 1.2 % (0-2.0); EOS % 0.7 % (0-4.5); HEMATOCRIT 35.9 % (35.4-49); HEMOGLOBIN 12.2 GM/dL (11.7-16.9); LYMPH % 19.7 % (8-40); MCH 27.2 pg (25.7-33.7); MCHC 33.9 g/dl (32.0-35.9); MEAN PLT VOLUME 6.5 fl (7.5-11.1); MONO % 9.1 % (3.8-10.2); NEUT % 69.3 % (42.8-82.8); PLATELET COUNT 859 10^3/uL (134-434); RBC 4.49 M/mm3 (4.00-5.60); RDW 14.5 % (11.9-15.9); WHITE BLOOD COUNT 7.5 K/mm3 (4.0-10.0)
[2021-12-08 07:56] LABS: ALBUMIN 2.2 g/dl (3.4-5.0); BLOOD UREA NITROGEN 22.1 mg/dL (7-18)
[2021-12-08 07:59] LABS: CREATININE 1.5 mg/dL (0.55-1.3)
[2021-12-08 08:00] LABS: BILIRUBIN,TOTAL 0.4 mg/dL (0.2-1)
[2021-12-08 08:01] LABS: TOT PROT 6.1 g/dl (6.4-8.2)
[2021-12-08] MEDS: FINASTERIDE 5 MG TABLET (FP) PO SCH (10:24)
[2021-12-08] MEDS: PANTOPRAZOLE SODIUM 40 MG VIAL IVPUSH SCH (10:24)
[2021-12-08] MEDS: TAMSULOSIN HCL 0.4 MG CAP PO SCH ×2 (10:24→23:38)
[2021-12-08] MEDS: METOPROLOL TARTRATE 50 MG TABLET (FP) PO SCH ×2 (10:24→23:38)
[2021-12-08] MEDS: ACETAMINOPHEN 325 MG TABLET (FP) PO PRN (10:40)
[2021-12-08] MEDS: hydrOXYzine PAMOATE 50 MG CAPSULE (FP) PO SCH ×2 (15:14→23:38)
[2021-12-08] MEDS: APIXABAN 2.5 MG TABLET PO SCH (23:38)
[2021-12-08] MEDS: CHLORHEXIDINE GLUCONATE 4% CLEANSER FOR DECOLONIZATION TP SCH (23:38)
[2021-12-09] MEDS ORDERED: PIPERACILLIN/TAZOBACTAM 3.375 GM VIAL IVPB ONE ×2 (02:11→09:25)
[2021-12-09] MEDS ORDERED: DEXTROSE 5%-WATER - 50 ML IVPB ONE ×2 (02:11→09:26)
[2021-12-09] MEDS: PIPERACILLIN/TAZOB 3.375 GM 3.375 GM in DEXTROSE 5%-WATER - 50 ML IVPB SCH ×2 (02:21→10:39)
[2021-12-09 06:37] LABS: BLOOD UREA NITROGEN 22.8 mg/dL (7-18); CALCIUM 8.5 mg/dL (8.5-10.1)
[2021-12-09 06:38] LABS: ALBUMIN 2.1 g/dl (3.4-5.0)
[2021-12-09 06:41] LABS: CREATININE 1.5 mg/dL (0.55-1.3)
[2021-12-09 06:42] LABS: BILIRUBIN,TOTAL 0.3 mg/dL (0.2-1); TOT PROT 5.7 g/dl (6.4-8.2)
[2021-12-09 06:45] LABS: BASO % 2.4 % (0-2.0); EOS % 1.3 % (0-4.5); HEMATOCRIT 35.5 % (35.4-49); HEMOGLOBIN 11.7 GM/dL (11.7-16.9); LYMPH % 23.8 % (8-40); MCH 26.3 pg (25.7-33.7); MCHC 32.8 g/dl (32.0-35.9); MEAN CELL VOLUME 80.1 fl (80-96); MEAN PLT VOLUME 6.6 fl (7.5-11.1); MONO % 10.5 % (3.8-10.2); PLATELET COUNT 836 10^3/uL (134-434); RBC 4.43 M/mm3 (4.00-5.60); RDW 14.3 % (11.9-15.9); WHITE BLOOD COUNT 6.7 K/mm3 (4.0-10.0)
[2021-12-09] MEDS: hydrOXYzine PAMOATE 50 MG CAPSULE (FP) PO SCH ×2 (10:36→21:03)
[2021-12-09] MEDS: PANTOPRAZOLE SODIUM 40 MG VIAL IVPUSH SCH (10:36)
[2021-12-09] MEDS: TAMSULOSIN HCL 0.4 MG CAP PO SCH ×2 (10:38→21:03)
[2021-12-09] MEDS: FINASTERIDE 5 MG TABLET (FP) PO SCH (10:39)
[2021-12-09] MEDS: METOPROLOL TARTRATE 25 MG TABLET (FP) PO SCH ×2 (10:39→21:03)
[2021-12-09] MEDS: APIXABAN 2.5 MG TABLET PO SCH ×2 (10:47→21:03)
[2021-12-09] MEDS: CHLORHEXIDINE GLUCONATE 4% CLEANSER FOR DECOLONIZATION TP SCH (21:04)
[2021-12-10 07:03] LABS: BASO % 2.3 % (0-2.0); EOS % 1.2 % (0-4.5); HEMATOCRIT 38.6 % (35.4-49); HEMOGLOBIN 12.4 GM/dL (11.7-16.9); LYMPH % 22.6 % (8-40); MCH 26.2 pg (25.7-33.7); MCHC 32.3 g/dl (32.0-35.9); MEAN CELL VOLUME 81.4 fl (80-96); MEAN PLT VOLUME 6.7 fl (7.5-11.1); NEUT % 68.9 % (42.8-82.8); PLATELET COUNT 798 10^3/uL (134-434); RBC 4.74 M/mm3 (4.00-5.60); RDW 14.5 % (11.9-15.9)
[2021-12-10 07:25] LABS: ALBUMIN 2.3 g/dl (3.4-5.0); BLOOD UREA NITROGEN 19.8 mg/dL (7-18); CALCIUM 9.3 mg/dL (8.5-10.1)
[2021-12-10 07:28] LABS: CREATININE 1.4 mg/dL (0.55-1.3)
[2021-12-10 07:30] LABS: BILIRUBIN,TOTAL 0.3 mg/dL (0.2-1); TOT PROT 6.1 g/dl (6.4-8.2)
[2021-12-10] MEDS: APIXABAN 2.5 MG TABLET PO SCH ×2 (09:18→21:25)
[2021-12-10] MEDS: PANTOPRAZOLE SODIUM 40 MG VIAL IVPUSH SCH (09:18)
[2021-12-10] MEDS: METOPROLOL TARTRATE 25 MG TABLET (FP) PO SCH ×2 (09:18→21:25)
[2021-12-10] MEDS: TAMSULOSIN HCL 0.4 MG CAP PO SCH ×2 (09:18→21:25)
[2021-12-10] MEDS: hydrOXYzine PAMOATE 25 MG CAPSULE (FP) PO SCH ×2 (09:18→21:25)
[2021-12-10] MEDS: FINASTERIDE 5 MG TABLET (FP) PO SCH (09:18)
[2021-12-10] MEDS: CHLORHEXIDINE GLUCONATE 4% CLEANSER FOR DECOLONIZATION TP SCH (21:25)
[2021-12-11 07:20] LABS: CALCIUM 9.1 mg/dL (8.5-10.1)
[2021-12-11 07:21] LABS: ALBUMIN 2.4 g/dl (3.4-5.0); BLOOD UREA NITROGEN 21.4 mg/dL (7-18)
[2021-12-11 07:24] LABS: CREATININE 1.3 mg/dL (0.55-1.3)
[2021-12-11 07:26] LABS: BILIRUBIN,TOTAL 0.2 mg/dL (0.2-1)
[2021-12-11] MEDS: ACETAMINOPHEN 325 MG TABLET (FP) PO PRN (09:56)
[2021-12-11] MEDS: APIXABAN 2.5 MG TABLET PO SCH ×2 (09:58→21:28)
[2021-12-11] MEDS: hydrOXYzine PAMOATE 25 MG CAPSULE (FP) PO SCH ×2 (09:58→21:28)
[2021-12-11] MEDS: METOPROLOL TARTRATE 25 MG TABLET (FP) PO SCH ×2 (09:58→21:28)
[2021-12-11] MEDS: FINASTERIDE 5 MG TABLET (FP) PO SCH (09:58)
[2021-12-11] MEDS: PANTOPRAZOLE SODIUM 40 MG VIAL IVPUSH SCH (09:59)
[2021-12-11] MEDS: TAMSULOSIN HCL 0.4 MG CAP PO SCH ×2 (09:59→21:28)
[2021-12-11 13:07] LABS: SARS-CoV-2 NAA Not Detected (Not Detected)
[2021-12-11] MEDS: CHLORHEXIDINE GLUCONATE 4% CLEANSER FOR DECOLONIZATION TP SCH (21:28)
[2021-12-12] MEDS: METOPROLOL TARTRATE 25 MG TABLET (FP) PO SCH ×2 (09:53→21:27)
[2021-12-12] MEDS: TAMSULOSIN HCL 0.4 MG CAP PO SCH ×2 (09:53→21:27)
[2021-12-12] MEDS: hydrOXYzine PAMOATE 25 MG CAPSULE (FP) PO SCH ×2 (09:53→22:04)
[2021-12-12] MEDS: APIXABAN 2.5 MG TABLET PO SCH ×2 (09:53→21:27)
[2021-12-12] MEDS: FINASTERIDE 5 MG TABLET (FP) PO SCH (09:53)
[2021-12-12] MEDS: ACETAMINOPHEN 325 MG TABLET (FP) PO PRN (09:55)
[2021-12-12] MEDS: PANTOPRAZOLE 40 MG TABLET PO SCH (15:06)
[2021-12-12] MEDS ORDERED: ARTIFICIAL TEARS (POLYVINYL ALCOHOL) OPTH DROPS OU PRN (15:44)
[2021-12-12] MEDS ORDERED: DOCUSATE NA 100 MG/10 ML UNIT-DOSE CUPS PO PRN (15:44)
[2021-12-12] MEDS ORDERED: CHLORHEXIDINE GLUCONATE 4% CLEANSER FOR DECOLONIZATION TP SCH (22:00)
[2021-12-13] MEDS: PANTOPRAZOLE 40 MG TABLET PO SCH (09:24)
[2021-12-13] MEDS: APIXABAN 2.5 MG TABLET PO SCH ×2 (09:24→21:04)
[2021-12-13] MEDS: METOPROLOL TARTRATE 25 MG TABLET (FP) PO SCH ×2 (09:24→21:04)
[2021-12-13] MEDS: TAMSULOSIN HCL 0.4 MG CAP PO SCH ×2 (09:24→21:04)
[2021-12-13] MEDS: FINASTERIDE 5 MG TABLET (FP) PO SCH (09:36)
[2021-12-13] MEDS: ACETAMINOPHEN 325 MG TABLET (FP) PO PRN ×2 (09:37→21:20)
[2021-12-13] MEDS: hydrOXYzine PAMOATE 25 MG CAPSULE (FP) PO SCH ×2 (11:16→21:04)
[2021-12-14] MEDS: TAMSULOSIN HCL 0.4 MG CAP PO SCH ×2 (08:05→22:35)
[2021-12-14] MEDS: ACETAMINOPHEN 325 MG TABLET (FP) PO PRN (08:05)
[2021-12-14] MEDS: PANTOPRAZOLE 40 MG TABLET PO SCH (10:17)
[2021-12-14] MEDS: APIXABAN 2.5 MG TABLET PO SCH ×2 (10:17→22:35)
[2021-12-14] MEDS: METOPROLOL TARTRATE 25 MG TABLET (FP) PO SCH ×2 (10:49→22:35)
[2021-12-14] MEDS ORDERED: SODIUM CHLORIDE 250 ML IV STA (11:16)
[2021-12-14] MEDS: PANTOPRAZOLE SODIUM 40 MG VIAL IVPUSH SCH (11:24)
[2021-12-14] MEDS: FINASTERIDE 5 MG TABLET (FP) PO SCH (14:28)
[2021-12-14 15:01] LABS: CALCIUM 9.1 mg/dL (8.5-10.1)
[2021-12-14 15:02] LABS: ALBUMIN 2.7 g/dl (3.4-5.0); BLOOD UREA NITROGEN 34.1 mg/dL (7-18)
[2021-12-14 15:05] LABS: CREATININE 1.9 mg/dL (0.55-1.3)
[2021-12-14 15:07] LABS: BILIRUBIN,TOTAL 0.3 mg/dL (0.2-1); TOT PROT 7.1 g/dl (6.4-8.2)
[2021-12-14] MEDS: hydrOXYzine PAMOATE 25 MG CAPSULE (FP) PO SCH (15:27)
[2021-12-15] MEDS: ACETAMINOPHEN 325 MG TABLET (FP) PO PRN ×3 (03:53→21:43)
[2021-12-15] MEDS: PANTOPRAZOLE 40 MG TABLET PO SCH (09:21)
[2021-12-15] MEDS: TAMSULOSIN HCL 0.4 MG CAP PO SCH ×2 (09:21→21:40)
[2021-12-15] MEDS: APIXABAN 2.5 MG TABLET PO SCH ×2 (09:21→21:40)
[2021-12-15] MEDS: FINASTERIDE 5 MG TABLET (FP) PO SCH (09:21)
[2021-12-15] MEDS: METOPROLOL TARTRATE 25 MG TABLET (FP) PO SCH ×2 (09:21→21:40)
[2021-12-16 08:51] VITALS: BP 107/55; PULSE 77; TEMP 98.8
[2021-12-16] MEDS: FINASTERIDE 5 MG TABLET (FP) PO SCH (09:01)
[2021-12-16] MEDS: PANTOPRAZOLE 40 MG TABLET PO SCH (09:01)
[2021-12-16] MEDS: METOPROLOL TARTRATE 25 MG TABLET (FP) PO SCH (09:01)
[2021-12-16] MEDS: TAMSULOSIN HCL 0.4 MG CAP PO SCH (09:01)
[2021-12-16] MEDS: APIXABAN 2.5 MG TABLET PO SCH (09:01)
[2021-12-16] MEDS: ACETAMINOPHEN 325 MG TABLET (FP) PO PRN (09:07)
== END 2021-12-16 14:17 | disposition home or self-care (01) | DRG 853 ==
LOC: JER 08:17 → JERBED 12:38 → JICU 13:14 → J2W 11-30 00:10 → J6S 12-12 15:29
PROVIDERS: ADMIT Internal Medicine Pulmonary Disease
PROC: 0T738DZ Dilation of Right Kidney Pelvis with Intraluminal Device, Via Natural or Artificial Opening Endoscopic (ICD-10-PCS; 2021-11-24)
PROC: 0T738DZ Dilation of Right Kidney Pelvis with Intraluminal Device, Via Natural or Artificial Opening Endoscopic (ICD-10-PCS; principal; 2021-12-06 11:00)
PROC: 0TC38ZZ Extirpation of Matter from Right Kidney Pelvis, Via Natural or Artificial Opening Endoscopic (ICD-10-PCS; 2021-12-06 11:00)
DX: A41.59 Other Gram-negative sepsis (principal); J18.9 Pneumonia, unspecified organism; I50.33 Acute on chronic diastolic (congestive) heart failure; I13.0 Hypertensive heart and chronic kidney disease with heart failure and stage 1 through stage 4 chronic kidney disease, or unspecified chronic kidney disease; N13.6 Pyonephrosis; N17.9 Acute kidney failure, unspecified; N39.0 Urinary tract infection, site not specified; E87.2 Acidosis; D69.6 Thrombocytopenia, unspecified; N18.9 Chronic kidney disease, unspecified; I25.10 Atherosclerotic heart disease of native coronary artery without angina pectoris; I48.0 Paroxysmal atrial fibrillation; R65.20 Severe sepsis without septic shock; N40.0 Benign prostatic hyperplasia without lower urinary tract symptoms
CPT/HCPCS: 36415; 71045-TC-FY; 74176-TC; 76000-TC-FY; 76705-TC; 80048; 80053; 81003; 82272; 82360; 82550; 82553; 82803; 82962; 83605; 83690; 83735; 84100; 84484; 85025; 85027; 85610; 85730; 86850; 86900; 86901; 87040; 87086; 87186; 88300-TC; 93005; 93010; 93306-TC; 94640; 94760; 97116-GP; 97161-GP; 99285-25; C9803-CS; J1644; U0003; U0005